=== PATIENT | female | born 1965 | race Caucasian/White ===

== ENCOUNTER 2019-09-14 13:48 | Outpatient (CLI) | payer OTHER, SELFPAY ==
--- NOTE | ~2019-09-14 | MM_ITS ---
EXAMINATION: MM screening francisca BI w nichole HISTORY: Screening mammogram TECHNIQUE: Craniocaudal and mediolateral oblique 3-D tomosynthesis images were obtained and synthetic 2-D images were generated. CAD analysis was submitted and interpreted. COMPARISON: 08/05/2018, 04/10/2017, 04/09/2016 bilateral digital screening mammogram examinations BREAST PARENCHYMAL COMPOSITION: The breasts are almost entirely fatty. FINDINGS: There is no evidence of suspicious mass, calcification, or architectural distortion to sugg est malignancy in either breast. There has been no suspicious interval change. IMPRESSION: 1. No mammographic evidence of malignancy. 2. Recommend routine screening mammography in one year. BI-RADS Category 1: Negative Reviewed, dictated and finalized at location A. DINGS AND GROUNDS DIRECTOR
== END 2019-09-14 13:49 | disposition home or self-care (01) ==
LOC: ANHIMG 13:52
PROVIDERS: PCP Family Medicine; Visit Provider Family Medicine
DX: Z12.31 Encounter for screening mammogram for malignant neoplasm of breast (principal)
CPT/HCPCS: 77063; 77067

== ENCOUNTER 2020-05-02 06:48 | Outpatient (NON) | payer OTHER, SELFPAY ==
[2020-05-02 23:56] LABS: SARS-CoV-2 RNA PCR Negative
== END 2020-05-02 06:49 ==
LOC: ANHCOVIDDT 06:51
PROVIDERS: PCP Family Medicine; Visit Provider Family Medicine
DX: Z20.828 Contact with and (suspected) exposure to other viral communicable diseases (principal)
CPT/HCPCS: 87635; C9803; U0003

== ENCOUNTER 2020-07-28 07:02 | Outpatient (NON) | payer OTHER, SELFPAY ==
[2020-07-28 21:49] LABS: SARS-CoV-2 RNA PCR Negative
== END 2020-07-28 07:03 ==
LOC: ANHCOVIDDT 07:02
PROVIDERS: PCP Family Medicine; Visit Provider Family Medicine
DX: Z20.822 Contact with and (suspected) exposure to COVID-19 (principal); R68.89 Other general symptoms and signs
CPT/HCPCS: C9803; U0003; U0005

== ENCOUNTER 2020-07-31 06:54 | Outpatient (NON) | payer OTHER, SELFPAY ==
[2020-07-31 22:35] LABS: SARS-CoV-2 RNA PCR Negative
== END 2020-07-31 06:55 ==
LOC: ANHCOVIDDT 07:05
PROVIDERS: PCP Family Medicine; Visit Provider Physician Assistant
DX: R68.89 Other general symptoms and signs (principal); Z20.822 Contact with and (suspected) exposure to COVID-19
CPT/HCPCS: C9803; U0003; U0005

== ENCOUNTER 2020-10-23 14:48 | Outpatient (CLI) | payer OTHER, SELFPAY ==
--- NOTE | ~2020-10-23 | MM_ITS ---
EXAMINATION: MM screening francisca BI w nichole HISTORY: Screening TECHNIQUE: Craniocaudal and mediolateral oblique 3-D tomosynthesis images were obtained and synthetic 2-D images were generated. CAD analysis was submitted and interpreted. COMPARISON: Comparison to multiple prior studies sequentially, with oldest reviewed study dated 09/29. BREAST PARENCHYMAL COMPOSITION: There are scattered areas of fibroglandular density. FINDINGS: There is no evidence of suspicious mass, calcification, or architectural distortion to sugg est malignancy in either breast. There has been no suspicious interval change. IMPRESSION: 1. No mammographic evidence of malignancy. 2. Recommend routine screening mammography in one year. BI-RADS Category 1: Negative Reviewed, dictated and finalized at location A.
== END 2020-10-23 14:49 | disposition home or self-care (01) ==
PROVIDERS: PCP Family Medicine; Visit Provider Family Medicine
DX: Z12.31 Encounter for screening mammogram for malignant neoplasm of breast (principal)
CPT/HCPCS: 77063; 77067

== ENCOUNTER 2021-01-10 00:39 | Emergency (ER) | payer OTHER, SELFPAY ==
--- NOTE | ~2021-01-10 | CT_ITS ---
EXAMINATION: CT brain wo con DATE: 01/10/2021 01:11 INDICATION: Headache TECHNIQUE: Computed tomography (CT) of the head was performed without intravenous contrast. Sagittal and coronal reconstructions were performed. The mA was adjusted according to patient size. Iterative reconstruction technique was employed. The dose-length product was 605.33 mGy-cm. COMPARISON: None FINDINGS: No acute intracranial hemorrhage, acute infarction or abnormal extra axial fluid collection. Ventricl es are normal and symmetric. No mass/mass effect. The orbits, paranasal sinuses and mastoid air cells are normal. IMPRESSION: 1. Normal head CT. Reviewed, dictated and finalized at location A. IMPRESSION: 1. Normal head CT.
[2021-01-10 00:46] VITALS: BP 137/82; PULSE 90; RESP 14; TEMP 36.9; O2SAT 99
--- NOTE | 2021-01-10 01:15 | ED.GENADULT ---
HPI - General Adult General Chief complaint: Unspecified Stated complaint: heat exhaustion Time Seen by Provider: 01/10/21 01:01 Source: patient Mode of arrival: ambulatory Limitations: no limitations History of Present Illness HPI narrative: Patient is a 55-year-old female complaining of I think I have heat exhaustion described as headache, nausea and cramps of bilateral lower extremities that started tonight. Patient states that her headache is an 8 out of 10, generalized, history of migraines, states that this is her typical headache. Patient states that she has been working outside in the heat the today, mowed her yard, cut grass. Patient denies any speech or visual disturbance, focal weakness or numbness, chest pain, shortness of breath, abdominal pain, vomiting, diarrhea, fever or chills. Related Data Allergies Allergy/AdvReac Type Severity Reaction Status Date / Time Sulfa (Sulfonamide Allergy Unknown Unknown Verified 10/23/20 13:39 Antibiotics) Review of Systems Review of Systems: All systems reviewed & are unremarkable except as noted in HPI and below Constitutional: Constitutional: Denies body ache(s), Denies chills, Denies excessive sweating, Denies fatigue, Denies fever(s), Denies headache(s), Denies lethargy, Denies malaise, Denies weakness and Denies weight loss Eyes: Eyes: Denies blurry vision, Denies change in vision and Denies loss of vision ENT: Denies dizziness, Denies ear discharge, Denies headache(s), Denies lip swelling, Denies epistaxis, Denies nasal congestion, Denies neck pain, Denies throat swelling and Denies tongue swelling Cardiovascular: Cardiovascular: Denies chest pain, Denies chest pain at rest, Denies chest pain with activity, Denies diaphoresis, Denies rapid heart rate, Denies edema, Denies irregular heart rhythm, Denies lightheadedness, Denies palpitations, Denies dyspnea and Denies dyspnea on exertion Respiratory: Respiratory: Denies chest congestion, Denies cough, Denies hemoptysis, Denies dyspnea and Denies dyspnea on exertion Gastrointestinal: Gastrointestinal: Denies abdominal pain, Denies melena, Denies hematochezia, Denies diarrhea, Denies vomiting and Denies hematemesis Musculoskeletal: Musculoskeletal: Denies abnormal gait, Denies deformity, Denies joint swelling, Denies limited range of motion, Denies neck pain and Denies numbness Neurologic: Denies Abnormal speech present, Denies abnormal gait, Denies confusion, Denies dizziness, Denies focal weakness, Denies loss of vision, Denies numbness, Denies Other visual disturbances, Denies Sensory deficit (Neuro) and Denies weakness Psychiatric: Psychiatric: Denies confusion, Denies depression, Denies auditory hallucinations, Denies homicidal ideation and Denies suicidal ideation Endocrine: Endocrine: Denies cold intolerance, Denies excessive sweating, Denies fatigue, Denies heat intolerance and Denies palpitations Hematologic/Lymphatic: Hematologic/Lymphatic: Denies easy bleeding and Denies easy bruising Allergic/Immunologic: Allergic/Immunologic: Denies lip swelling, Denies throat swelling and Denies tongue swelling PMFSH Past Medical History Medical History JOHN (generalized anxiety disorder) Family History Family History Father Hypertension Family history of elevated blood lipids Cerebrovascular accident Family history of diabetes mellitus in first degree relative, Onset Age: 82 Patient's father is Sibling Cerebrovascular accident, Onset Age: 45 Mother Family history of malignant neoplasm of breast in first degree relative, Onset Age: 42 Patient's mother is Social History Social History Social History: Smoking status: Never smoker Second hand tobacco smoke exposure: No Alcohol intake: never Subs
[2021-01-10] MEDS: SODIUM CHLORIDE 0.9% IV 1,000 ML 999 ML IV CONT ×2 (01:32→01:33)
[2021-01-10] MEDS: METOCLOPRAMIDE HCL INJ 10 MG/2 ML VIAL IV PUSH (01:33)
[2021-01-10] MEDS: diphenhydrAMINE HCl INJ 50 MG/ML VIAL 25 MG IV PUSH (01:34)
[2021-01-10 01:47] LABS: Basophils Absolute Auto 0.1 K/mm3 (0.0-0.1); Eosinophils Absolute Auto 0.1 K/mm3 (0-0.3); Eosinophils Percent Auto 1.2 % (0-4.4); Hematocrit 39.3 % (37.0-47.0); Hemoglobin 12.8 g/dL (12.0-15.0); Immature Granulocyte Absolute 0.04 K/mm3 (0.00-0.031); Immature Granulocyte Percent A 0.4 % (0-0.5); Lymphocytes Percent Auto 27.2 % (18.3-44.2); Mean Corpuscular HGB Conc 32.6 g/dl (32-36); Mean Corpuscular Hemoglobin 29.4 pg (26-34); Mean Corpuscular Volume 90.3 fl (80-100); Mean Platelet Volume 9.6 fl (7.4-10.4); Monocytes Absolute Auto 0.7 K/mm3 (0.1-0.6); Monocytes Percent Auto 7.4 % (2.6-8.5); Neutrophils Absolute Auto 6.2 K/mm3 (1.3-6.7); Neutrophils Percent Auto 62.8 % (45.5-73.1); Platelet Count Result 288 k/mm3 (150-375); Red Blood Count 4.35 M/mm3 (4.2-5.4); Red Cell Distribution Width 12.9 % (11.5-14.5); White Blood Count 9.9 K/mm3 (4.5-10.0)
[2021-01-10 01:56] LABS: Alanine Aminotransferase 28 U/L (4-35); Albumin Level 4.2 g/dL (3.5-5.1); Alkaline Phosphatase 61 U/L (38-126); Anion Gap 9 mmol/L (8-16); Aspartate Amino Transferase 27 U/L (14-36); Bilirubin,Total 0.5 mg/dL (0.2-1.3); Blood Urea Nitrogen 13 mg/dL (7-17); Calcium 9.4 mg/dL (8.4-10.2); Carbon Dioxide 25 mmol/L (22-30); Chloride 106 mmol/L (98-107); Creatine Kinase 75 U/L (30-135); Estimated CRCL calculation 58 ml/min; Estimated Glomerular Filt Rate 58; Glucose 82 mg/dL (65-105); Potassium 3.8 mmol/L (3.4-5.0); Sodium 140 mmol/L (137-145)
[2021-01-10 02:50] VITALS: BP 117/68; PULSE 68; RESP 16; O2SAT 100
== END 2021-01-10 03:20 | disposition home or self-care (01) ==
PROVIDERS: Emergency Provider Emergency Medicine; PCP Family Medicine
DX: T67.5XXA Heat exhaustion, unspecified, initial encounter (principal); G43.909 Migraine, unspecified, not intractable, without status migrainosus
CPT/HCPCS: 36415; 70450; 80053; 82550; 85025; 96361; 96374; 96375; 99284; J1200; J2765; J7030

== ENCOUNTER 2021-05-27 14:18 | Emergency (ER) | payer OTHER, SELFPAY ==
--- NOTE | ~2021-05-27 | XR_ITS ---
EXAMINATION: XR foot RT min 3V DATE: 05/27/2021 14:58 INDICATION: Right fifth metatarsal pain. Injury. TECHNIQUE: 4 views of right foot were obtained. COMPARISON: None. FINDINGS: There is moderate hallux valgus. No fracture. There is mild osteoarthritis of first metatar sophalangeal joint. There are enthesophytes at the posterior and plantar aspects of calcaneal tuberos ity. IMPRESSION: 1. Moderate hallux valgus. 2. Mild osteoarthritis of first metatarsophalangeal joint. Reviewed, dictated and finalized at location A. NHOUSE ASSISTANT
[2021-05-27 14:40] VITALS: BP 136/66; PULSE 74; RESP 18; TEMP 37; O2SAT 100
--- NOTE | 2021-05-27 14:44 | ED.LOWEXIN ---
HPI - Extremity Injury (Lower) General Chief Complaint: Extremity Injury, Lower Stated Complaint: Rt foot/ankle pain Time Seen by Provider: 05/27/21 14:44 Source: patient, RN notes reviewed and old records reviewed Mode of arrival: ambulatory Limitations: no limitations History of Present Illness HPI Narrative: 56-year-old female presents to the [facility] with complaints of right foot pain, fifth metatarsal into the plantar aspect since yesterday at 4 PM when she stepped in a hole. Has taken naproxen. History of anxiety, gallbladder removal, meniscus removal. Related Data Allergies Allergy/AdvReac Type Severity Reaction Status Date / Time Sulfa (Sulfonamide Allergy Mild Hives Verified 05/27/21 14:43 Antibiotics) Review of Systems Review of Systems: All systems reviewed & are unremarkable except as noted in HPI and below Constitutional: Constitutional: Reports no additional constitutional complaints, Denies chills and Denies fever(s) Eyes: Eyes: Reports no additional eye complaints ENT: Reports system reviewed and no additional complaints, except as documented Cardiovascular: Cardiovascular: Reports no additional cardiovascular complaints Respiratory: Respiratory: Reports no additional respiratory complaints Musculoskeletal: Musculoskeletal: Reports as per HPI Comments: Right fifth metatarsal tenderness, swelling Integumentary/Breasts: Skin/Breast: Reports system reviewed and no additional complaints, except as docu Neurologic: Reports system reviewed and no additional complaints, except as documented Psychiatric: Psychiatric: Reports no additional psychiatric complaints Allergic/Immunologic: Allergic/Immunologic: Reports no additional allergic/immunologic complaints [facility] Past Medical History Medical History JOHN (generalized anxiety disorder) Migraines Surgical History Surgical History History of meniscectomy of left knee History of tubal ligation Family History Family History Father Hypertension Family history of elevated blood lipids Cerebrovascular accident Family history of diabetes mellitus in first degree relative, Onset Age: 82 Patient's father is Sibling Cerebrovascular accident, Onset Age: 45 Mother Family history of malignant neoplasm of breast in first degree relative, Onset Age: 42 Patient's mother is Social History Social History Social History: Smoking status: Never smoker Second hand tobacco smoke exposure: No Alcohol intake: never Substance use: never Substance use type: does not use Gender identity (if verbalized by the patient): Female Sexual Orientation (if Verbalized by the Patient): Straight or Heterosexual Comments At the time of my signature, I reviewed and agree with the nursing past medical, surgical, social, and family history. There is no relevant family history pertinent to the patient complaint. Exam Const: General: healthy appearing, no acute distress and alert Nutritional Appearance: well nourished Orientation/consciousness: patient oriented x3 Limitations: no limitations HENMT: Head: normal to inspection Eyes: Pupils: Equal, round and reactive pupils present Neck: Neck: normal visual inspection, no lymphadenopathy and no meningeal signs Chest: Chest palpation & inspection: normal inspection of the chest Resp: Effort & Inspection: normal respiratory effort Cardio: Rate: regular rate Back/Spine/Pelvis: Back: no CVA tenderness Skin: General skin exam: normal color Rashes: no rashes Wounds: no wounds Neuro: General: patient oriented x3, moves all extremities, no meningeal signs and no focal motor deficits Speech: normal speech Gait exam (Neuro): Normal gait present Extrem: Ge
== END 2021-05-27 15:15 | disposition home or self-care (01) ==
PROVIDERS: Emergency Provider Nurse Practitioner; PCP Family Medicine
DX: S93.601A Unspecified sprain of right foot, initial encounter (principal); W17.2XXA Fall into hole, initial encounter
CPT/HCPCS: 73630; 99213; G0463

== ENCOUNTER 2021-06-19 09:32 | Outpatient (CLI) | payer OTHER, SELFPAY ==
--- NOTE | ~2021-06-19 | XR_ITS ---
EXAMINATION: XR foot RT min 3V DATE: 06/19/2021 09:59 INDICATION: Right foot pain TECHNIQUE: Dorsoplantar, lateral, and 2 oblique views of the right foot were obtained. COMPARISON: 05/27/2021 FINDINGS: There is no fracture, dislocation, or subluxation. Moderate hallux valgus is again noted. T here is mild osteoarthritis of multiple interphalangeal joints and at the first metatarsophalangeal j oint. Posterior and plantar calcaneal enthesophytes are noted. The soft tissues are unremarkable. IMPRESSION: 1. No acute osseous abnormality. Reviewed, dictated and finalized at location A. LLIGENCE SENIOR SERGEANT
== END 2021-06-19 09:33 | disposition home or self-care (01) ==
LOC: ANHIMG 09:36
PROVIDERS: PCP Family Medicine; Visit Provider Family Medicine
DX: M79.671 Pain in right foot (principal)
CPT/HCPCS: 73630

== ENCOUNTER 2021-07-01 12:52 | Emergency (ER) | payer OTHER, SELFPAY ==
[2021-07-01 13:05] VITALS: BP 127/75; PULSE 99; RESP 18; TEMP 38; O2SAT 97
--- NOTE | 2021-07-01 13:05 | ED.URI ---
HPI - URI/Sore Throat General Chief Complaint: Abdominal Pain Stated Complaint: flu like symptoms,diarrhea Time Seen by Provider: 07/01/21 13:05 Source: patient, RN notes reviewed and old records reviewed Mode of arrival: ambulatory Limitations: no limitations History of Present Illness HPI Narrative: 56-year-old female presents to the [facility] with complaints of diarrhea and low-grade fevers that started yesterday. Also has lower back pain. Denies any urinary symptoms. No frequency urgency or burning. No abdominal pain. No chest pain. Denies any other symptoms Related Data Home Medications Medication Instructions Recorded Confirmed aspirin [Adult Aspirin EC Low 81 mg PO DAILY 07/01/21 07/01/21 Strength] Allergies Allergy/AdvReac Type Severity Reaction Status Date / Time Sulfa (Sulfonamide Allergy Mild Hives Verified 07/01/21 13:19 Antibiotics) Review of Systems Review of Systems: All systems reviewed & are unremarkable except as noted in HPI and below Constitutional: Constitutional: Reports as per HPI, Reports chills and Reports fever(s) Eyes: Eyes: Reports no additional eye complaints ENT: Reports system reviewed and no additional complaints, except as documented, Denies dysphagia, Denies vertigo, Denies dizziness, Denies nasal congestion and Denies sore throat Cardiovascular: Cardiovascular: Reports no additional cardiovascular complaints and Denies chest pain Respiratory: Respiratory: Reports no additional respiratory complaints, Denies cough, Denies dyspnea and Denies wheezing Gastrointestinal: Gastrointestinal: Reports as per HPI, Denies abdominal pain, Reports diarrhea and Denies vomiting Genitourinary: Genitourinary: Reports no additional female genitourinary complaints, Denies nocturia, Denies dysuria, Denies flank pain and Denies urinary incontinence Musculoskeletal: Musculoskeletal: Reports as per HPI and Reports back pain (Lower) Integumentary/Breasts: Skin/Breast: Reports system reviewed and no additional complaints, except as docu Neurologic: Reports system reviewed and no additional complaints, except as documented Psychiatric: Psychiatric: Reports no additional psychiatric complaints Allergic/Immunologic: Allergic/Immunologic: Reports no additional allergic/immunologic complaints PMFSH Past Medical History Medical History JOHN (generalized anxiety disorder) Migraines Surgical History Surgical History History of meniscectomy of left knee History of tubal ligation Family History Family History Father Hypertension Family history of elevated blood lipids Cerebrovascular accident Family history of diabetes mellitus in first degree relative, Onset Age: 82 Patient's father is Sibling Cerebrovascular accident, Onset Age: 45 Mother Family history of malignant neoplasm of breast in first degree relative, Onset Age: 42 Patient's mother is Social History Social History Social History: Smoking status: Never smoker Second hand tobacco smoke exposure: No Alcohol intake: never Substance use: never Substance use type: does not use Gender identity (if verbalized by the patient): Female Sexual Orientation (if Verbalized by the Patient): Straight or Heterosexual Comments At the time of my signature, I reviewed and agree with the nursing past medical, surgical, social, and family history. There is no relevant family history pertinent to the patient complaint. Exam Const: General: healthy appearing, no acute distress and alert Nutritional Appearance: well nourished Orientation/consciousness: patient oriented x3 Limitations: no limitations HENMT: Head: normal to inspection Ears: external ears normal, TM's normal b
== END 2021-07-01 13:44 | disposition home or self-care (01) ==
PROVIDERS: Emergency Provider Nurse Practitioner; PCP Family Medicine
DX: K52.9 Noninfective gastroenteritis and colitis, unspecified (principal); N30.01 Acute cystitis with hematuria; Z79.82 Long term (current) use of aspirin
CPT/HCPCS: 81003; 87086; 87088; 87804; 99213; G0463

== ENCOUNTER → 2021-07-03 02:50 | Outpatient (CLI) | payer OTHER, SELFPAY ==
[2021-07-03 19:40] LABS: SARS-CoV-2 RNA PCR Negative
== END ==
PROVIDERS: PCP Family Medicine; Visit Provider Nurse Practitioner
DX: R50.9 Fever, unspecified (principal); Z20.822 Contact with and (suspected) exposure to COVID-19
CPT/HCPCS: C9803; U0003; U0005

== ENCOUNTER 2021-07-27 11:18 | Emergency (ER) | payer OTHER, SELFPAY ==
[2021-07-27 11:49] VITALS: BP 139/87; PULSE 90; RESP 18; TEMP 37.9; O2SAT 98
--- NOTE | 2021-07-27 12:32 | ED.URI ---
HPI - URI/Sore Throat General Chief Complaint: Upper Respiratory Infection Stated Complaint: Fever,Chest and Upper Back Pain,Cough Time Seen by Provider: 07/27/21 12:22 Source: patient and RN notes reviewed Mode of arrival: ambulatory Limitations: no limitations History of Present Illness HPI Narrative: Patient presents today complaining of 3-day history of chest and back heaviness, productive cough, and fever up to 101.4. She reports multiple sick contacts with COVID-19 at work. She has been taking Tylenol with some relief and using cough drops. She has been vaccinated against COVID-19. MD elicited complaint: fever and cough Related Data Home Medications Medication Instructions Recorded Confirmed aspirin [Adult Aspirin EC Low 81 mg PO DAILY 07/01/21 07/27/21 Strength] Allergies Allergy/AdvReac Type Severity Reaction Status Date / Time Sulfa (Sulfonamide Allergy Mild Hives Verified 07/01/21 13:19 Antibiotics) Review of Systems Review of Systems: CONSTITUTIONAL: Denies body aches, chills, or sweats.+ Fever EYES: Denies visual changes, redness, or discharge. ENT: Denies rhinorrhea, congestion, sore throat, or otalgia. CARDIOVASCULAR: Denies chest pain, palpitations, or edema. RESPIRATORY: Denies dyspnea.+ Cough, chest heaviness GASTROINTESTINAL: Denies abdominal pain, nausea, vomiting, or diarrhea. GENITOURINARY: Denies dysuria or hematuria. SKIN: Denies rash, itching, or wounds. MUSCULOSKELETAL: Denies back pain, joint pain, or myalgia. NEUROLOGIC: Denies headache, numbness, tingling, or weakness. PSYCH: Denies depression or anxiety. [facility] Past Medical History Medical History JOHN (generalized anxiety disorder) Migraines Surgical History Surgical History History of meniscectomy of left knee History of tubal ligation Family History Family History Father Hypertension Family history of elevated blood lipids Cerebrovascular accident Family history of diabetes mellitus in first degree relative, Onset Age: 82 Patient's father is Sibling Cerebrovascular accident, Onset Age: 45 Mother Family history of malignant neoplasm of breast in first degree relative, Onset Age: 42 Patient's mother is Social History Social History Social History: Smoking status: Never smoker Second hand tobacco smoke exposure: No Alcohol intake: never Substance use: never Substance use type: does not use Gender identity (if verbalized by the patient): Female Sexual Orientation (if Verbalized by the Patient): Straight or Heterosexual Comments At time of signature, I have reviewed and agree with nursing past medical, surgical, social and family history unless otherwise noted. Please see nursing chart for further information. There is no relevant family history pertinent to the presenting complaint Exam Narrative: GENERAL: Well-appearing, well-nourished, and in no acute distress. HEAD: Normocephalic, atraumatic. EYES: EOMI. No redness or drainage. Conjunctivae normal. ENT: Mucous membranes pink and moist. Nares clear. No rhinorrhea. TMs normal bilaterally. Throat normal. Uvula midline. NECK: Normal AROM. Supple. No lymphadenopathy. CHEST: No respiratory distress. Clear to auscultation. HEART: Regular rate and rhythm. No murmur appreciated. Normal peripheral pulses. EXTREMITIES: Normal range of motion. No edema. SKIN: Warm, dry, no rash. Capillary refill normal. Normal skin turgor. NEURO: No focal deficits. Alert and oriented x3. Gait steady. PSYCH: Normal affect. No signs of depression or anxiety. Course Course Level of Care: Express Care Visit Vital Signs Vital signs: Vital Signs Temperature
== END 2021-07-27 12:59 | disposition home or self-care (01) ==
PROVIDERS: Emergency Provider Nurse Practitioner; PCP Family Medicine
DX: U07.1 COVID-19 (principal); F41.9 Anxiety disorder, unspecified
CPT/HCPCS: 87426; 99213; C9803; G0463

== ENCOUNTER 2021-11-11 14:19 | Outpatient (CLI) | payer OTHER, SELFPAY ==
--- NOTE | ~2021-11-11 | MM_ITS ---
EXAMINATION: MM screening francisca BI w nichole HISTORY: Screening mammogram TECHNIQUE: Craniocaudal and mediolateral oblique 3-D tomosynthesis images were obtained and synthetic 2-D images were generated. CAD analysis was submitted and interpreted. COMPARISON: 10/23/2020, 09/2019, 08/01/2018 bilateral screening mammogram examinations BREAST PARENCHYMAL COMPOSITION: The breasts are almost entirely fatty. FINDINGS: There is no evidence of suspicious mass, calcification, or architectural distortion to sugg est malignancy in either breast. There has been no suspicious interval change. IMPRESSION: 1. No mammographic evidence of malignancy. 2. Recommend routine screening mammography in one year. BI-RADS Category 1: Negative Reviewed, dictated and finalized at location A.
== END 2021-11-11 14:20 | disposition home or self-care (01) ==
LOC: ANHIMG 14:20
PROVIDERS: PCP Family Medicine; Visit Provider Family Medicine
DX: Z12.31 Encounter for screening mammogram for malignant neoplasm of breast (principal)
CPT/HCPCS: 77063; 77067

== ENCOUNTER 2022-08-17 08:01 | Emergency (ER) | payer OTHER, SELFPAY ==
--- NOTE | 2022-08-17 08:14 | ED.GENADULT ---
HPI - General Adult General Chief complaint: Upper Respiratory Infection Stated complaint: flu like symptoms Time Seen by Provider: 08/17/22 08:16 Source: patient Mode of arrival: ambulatory Limitations: no limitations History of Present Illness HPI narrative: 57-year-old female patient presents to the [facility] with complaints of low-grade fever, congestion and just feeling tired for the past 2 days. Patient states she recently just got home from a cruise. Denies coughing, chest pain or shortness of breath. Denies any sneezing. Denies any of runny nose, ear pain or throat pain. Denies any abdominal pain, nausea, vomiting or diarrhea. Related Data Allergies Allergy/AdvReac Type Severity Reaction Status Date / Time Sulfa (Sulfonamide Allergy Mild Hives Verified 08/17/22 08:18 Antibiotics) Review of Systems Review of Systems: CONSTITUTIONAL: Positive fever, denies chills, or sweats. positive malaise EYES: Denies visual changes, redness, or discharge. ENT: Denies rhinorrhea, positive congestion, denies sore throat, or otalgia. CARDIOVASCULAR: Denies chest pain, palpitations, or edema. RESPIRATORY: Denies cough or dyspnea. GASTROINTESTINAL: Denies abdominal pain, nausea, vomiting, or diarrhea. GENITOURINARY: Denies dysuria or hematuria. SKIN: Denies rash or itching. MUSCULOSKELETAL: Denies back pain, joint pain, or myalgia. NEUROLOGIC: Denies headache, numbness, or weakness. PSYCHIATRIC: Denies anxiety or depression. [facility] Past Medical History Medical History JOHN (generalized anxiety disorder) Migraines Surgical History Surgical History History of meniscectomy of left knee History of tubal ligation Family History Family History Father Hypertension Family history of elevated blood lipids Cerebrovascular accident Family history of diabetes mellitus in first degree relative, Onset Age: 82 Patient's father is Sibling Cerebrovascular accident, Onset Age: 45 Mother Family history of malignant neoplasm of breast in first degree relative, Onset Age: 42 Patient's mother is Social History Social History (Reviewed 08/17/22 @ 08:30 by PAKO Strauss Social History: Smoking status: Never smoker Second hand tobacco smoke exposure: No Alcohol intake: never Substance use: never Substance use type: does not use Living arrangements: with family Occupation/Education: occupation Gender identity (if verbalized by the patient): Female Sexual Orientation (if Verbalized by the Patient): Straight or Heterosexual Comments At the time of my signature I agree with nursing past medical history, surgical, social, and family history. There is no relevant family history pertinent to the presenting complaint. Exam Narrative: GENERAL: Well-appearing, well-nourished, and in no acute distress. HEAD: Normocephalic, atraumatic. EYES: PERRLA and EOMI. ENT: Nares with erythema and edema noted bilaterally, no rhinorrhea or epistaxis. Mucous membranes moist. posterior pharynx with no erythema, tonsillar enlargement, exudates or lesions present. Bilateral TMs are clear no erythema or foreign bodies the canal. NECK: Supple. No lymphadenopathy CHEST: Clear to auscultation. No respiratory distress. HEART: Regular rate and rhythm. No murmur heard. Normal peripheral pulses. ABDOMEN: Soft, nontender, nondistended, normal active bowel sounds. EXTREMITIES: Normal range of motion. No edema. SKIN: Warm, dry, no rash. NEURO: No focal deficits. Alert and oriented x3. Course Course Level of Care: Express Care Visit Vital Signs Vital signs: Vital Signs Temperature 36.8 C 08/17/22 08:18 Pulse Rate 70 08/17/22 08:18 Respiratory Rate 18 08/17/22 08:18 Blood Pressure 126/73 08/17/22 08:18
[2022-08-17 08:18] VITALS: BP 126/73; PULSE 70; RESP 18; TEMP 36.8; O2SAT 96
[2022-08-17 08:19] VITALS: BP 126/73; PULSE 70; RESP 18; TEMP 36.8; O2SAT 96
== END 2022-08-17 08:57 | disposition home or self-care (01) ==
PROVIDERS: Emergency Provider Nurse Practitioner Family; PCP Family Medicine
DX: B34.9 Viral infection, unspecified (principal); Z20.822 Contact with and (suspected) exposure to COVID-19; F41.1 Generalized anxiety disorder
CPT/HCPCS: 87426; 87804; 99213; C9803; G0463

== ENCOUNTER 2022-11-29 08:48 | Outpatient (CLI) | payer OTHER, SELFPAY ==
[2022-11-29 09:32] LABS: Basophils Absolute Auto 0.1 K/mm3 (0.0-0.1); Basophils Percent Auto 0.8 % (0.2-1.2); Eosinophils Absolute Auto 0.1 K/mm3 (0-0.3); Eosinophils Percent Auto 2.3 % (0-4.4); Hematocrit 39.3 % (37.0-47.0); Hemoglobin 12.8 g/dL (12.0-15.0); Immature Granulocyte Absolute 0.02 K/mm3 (0.00-0.031); Immature Granulocyte Percent A 0.3 % (0-0.5); Lymphocytes Absolute Auto 1.59 K/mm3 (0.9-3.2); Lymphocytes Percent Auto 26.2 % (18.3-44.2); Mean Corpuscular HGB Conc 32.6 g/dl (32-36); Mean Corpuscular Hemoglobin 29.7 pg (26-34); Mean Corpuscular Volume 91.2 fl (80-100); Mean Platelet Volume 9.4 fl (7.4-10.4); Monocytes Absolute Auto 0.4 K/mm3 (0.1-0.6); Monocytes Percent Auto 6.6 % (2.6-8.5); Neutrophils Absolute Auto 3.9 K/mm3 (1.3-6.7); Neutrophils Percent Auto 63.8 % (45.5-73.1); Platelet Count Result 273 k/mm3 (150-375); Red Blood Count 4.31 M/mm3 (4.2-5.4); Red Cell Distribution Width 12.9 % (11.5-14.5); White Blood Count 6.1 K/mm3 (4.5-10.0)
[2022-11-29 09:42] LABS: Alanine Aminotransferase 28 U/L (6-35); Albumin Level 4.1 g/dL (3.5-5.1); Alkaline Phosphatase 58 U/L (38-126); Anion Gap 4 mmol/L (8-16); Aspartate Amino Transferase 25 U/L (14-36); Bilirubin,Total 0.6 mg/dL (0.2-1.3); Blood Urea Nitrogen 16 mg/dL (7-17); Calcium 9.1 mg/dL (8.4-10.2); Carbon Dioxide 30 mmol/L (22-30); Chloride 107 mmol/L (98-107); Cholesterol 177 mg/dL (0-200); Estimated Glomerular Filt Rate 57; Glucose 94 mg/dL (65-110); HDL Direct 43 mg/dL; Potassium 4.3 mmol/L (3.4-5.0); Sodium 141 mmol/L (137-145); Triglycerides 135 mg/dL (<150)
[2022-11-29 09:53] LABS: LDL Cholesterol Direct 85 mg/dL
== END 2022-11-29 08:49 | disposition home or self-care (01) ==
LOC: ANHLAB 08:49
PROVIDERS: PCP Family Medicine; Visit Provider Nurse Practitioner Gerontology
DX: F41.1 Generalized anxiety disorder (principal); Z13.220 Encounter for screening for lipoid disorders; Z13.29 Encounter for screening for other suspected endocrine disorder
CPT/HCPCS: 36415; 80053; 80061; 85025

== ENCOUNTER 2023-02-17 00:46 | Day surgery (SDC) | payer OTHER, SELFPAY ==
[2023-01-22 15:36] VITALS: BMI 34.7
[2023-02-17 06:45] VITALS: BP 131/77; PULSE 68; RESP 18; TEMP 36.3; O2SAT 99; BMI 34.9
[2023-02-17] MEDS: LACTATED RINGERS 1,000 ML 150 ML IV CONT (07:03)
--- NOTE | 2023-02-17 07:32 | WPDANESEPPF ---
Anes - Initial Pre Proc Eval Procedure: Operation Date: 02/17/23 08:15 Proposed Procedures p Screening Colonoscopy - Pino Sorensen MD Date/Time: 02/17/23 07:32 Surgeon: Pino Sorensen MD Pre Op Diagnosis: neoplasm screening Patient Data Age: 58 Gender: F Height: 1.57 m Weight: 86.6 kg Last Vital Signs Temp 36.3 C L 02/17/23 06:45 Pulse 68 02/17/23 06:45 Resp 18 02/17/23 06:45 BP 131/77 02/17/23 06:45 Pulse Ox 99 02/17/23 06:45 O2 Del Method Room Air 02/17/23 06:45 Allergies Allergy/AdvReac Type Severity Reaction Status Date / Time nickel Allergy Intermediate Rash Verified 02/17/23 06:50 Sulfa (Sulfonamide Allergy Intermediate Hives Verified 02/17/23 06:50 Antibiotics) Home Medications Medication Instructions Recorded Confirmed Type cetirizine 10 mg tablet See Rx Instructions .Route 08/20/22 02/17/23 Rx .COMPLEX #90 tabs escitalopram oxalate 10 mg tablet 10 mg PO DAILY #90 tabs 12/25/22 02/17/23 Rx aspirin 81 mg capsule 81 mg PO DAILY 01/22/23 02/17/23 History calcium 1 tab-cap PO DAILY 01/22/23 02/17/23 History Patient hx anesthesia problems: none Family hx anesthesia problems: none Results Review: All pre-operative results and documents have been reviewed as part of the pre-operative evaluation. PMFSH Past Medical History Medical History JOHN (generalized anxiety disorder) Migraines Surgical History Surgical History History of meniscectomy of left knee History of tubal ligation Family History Family History Father Hypertension Family history of elevated blood lipids Cerebrovascular accident Family history of diabetes mellitus in first degree relative, Onset Age: 82 Patient's father is Sibling Cerebrovascular accident, Onset Age: 45 Mother Family history of malignant neoplasm of breast in first degree relative, Onset Age: 42 Patient's mother is Social History Social History Social History: Smoking status: Never smoker Second hand tobacco smoke exposure: No Alcohol intake: current Substance use: never Substance use type: does not use Living arrangements: with family Occupation/Education: occupation Gender identity (if verbalized by the patient): Female Sexual Orientation (if Verbalized by the Patient): Straight or Heterosexual Spiritual care concerns: No Anes - Eval Final PreProcedure Day of Procedure 02/17/23 07:32 Patient weight: obese Heart: regular rate and rhythm Lungs: clear to auscultation Airway: Mallampati scale class II Neurological: alert and oriented Last oral intake: >/= 8 hours ASA classification: II Emergent: no Anesthetic plan: proceed Anesthesia type and monitoring: general GIVS and standard monitoring Results Review: All pre-operative results and documents have been reviewed as part of the pre-operative evaluation. Informed Consent: The patient's anesthetic plan and its attendant risks and benefits were discussed with the patient/family/POA. Questions were solicited and answers provided to the satisfaction of the patient/family/POA.
--- NOTE | 2023-02-17 08:03 | PM.HPGS ---
History of Present Illness History of Present Illness Consent: Risks, benefits, and alternatives have been discussed and questions answered. Patient agrees to proceed with procedure. Chief complaint: neoplasm screening Narrative: Zara Marley is a 58 year old female with colon polyp 5 years ago Review of Systems Constitutional: Constitutional: Denies headache(s) and Denies weakness Eyes: Eyes: Denies blurry vision ENT: Reports Normal hearing present, Denies headache(s) and Denies neck pain Cardiovascular: Cardiovascular: Denies chest pain and Denies dyspnea Respiratory: Respiratory: Denies dyspnea Gastrointestinal: Gastrointestinal: Reports no additional gastrointestinal complaints Genitourinary: Genitourinary: Denies dysuria Musculoskeletal: Musculoskeletal: Denies neck pain Integumentary/Breasts: Skin/Breast: Denies dry skin Neurologic: Reports Normal hearing present, Denies headache(s) and Denies weakness Psychiatric: Psychiatric: Denies anxiety Endocrine: Endocrine: Denies change in body appearance Hematologic/Lymphatic: Hematologic/Lymphatic: Denies easy bleeding Allergic/Immunologic: Allergic/Immunologic: Denies urticaria PMFSH Past Medical History Medical History JOHN (generalized anxiety disorder) Migraines Surgical History Surgical History History of meniscectomy of left knee History of tubal ligation Family History Family History Father Hypertension Family history of elevated blood lipids Cerebrovascular accident Family history of diabetes mellitus in first degree relative, Onset Age: 82 Patient's father is Sibling Cerebrovascular accident, Onset Age: 45 Mother Family history of malignant neoplasm of breast in first degree relative, Onset Age: 42 Patient's mother is Social History Social History Social History: Smoking status: Never smoker Second hand tobacco smoke exposure: No Alcohol intake: current Substance use: never Substance use type: does not use Living arrangements: with family Occupation/Education: occupation Gender identity (if verbalized by the patient): Female Sexual Orientation (if Verbalized by the Patient): Straight or Heterosexual Spiritual care concerns: No Meds Home Medications and Allergies Home Medications Medication Instructions Recorded Confirmed Type cetirizine 10 mg tablet See Rx Instructions .Route 08/20/22 02/17/23 Rx .COMPLEX #90 tabs escitalopram oxalate 10 mg tablet 10 mg PO DAILY #90 tabs 12/25/22 02/17/23 Rx aspirin 81 mg capsule 81 mg PO DAILY 01/22/23 02/17/23 History calcium 1 tab-cap PO DAILY 01/22/23 02/17/23 History Allergies Allergy/AdvReac Type Severity Reaction Status Date / Time nickel Allergy Intermediate Rash Verified 02/17/23 06:50 Sulfa (Sulfonamide Allergy Intermediate Hives Verified 02/17/23 06:50 Antibiotics) Vital Signs Vital Signs - 24 hr 02/17/23 06:45 Temperature 97.4 F L Pulse Rate 68 Respiratory Rate 18 Blood Pressure 131/77 Pulse Oximetry 99 Oxygen Delivery Room Air Exam Const: General: comfortable and no acute distress HENMT: Face/Nose/Sinus: Normal nares present Eyes: General: appearance normal, both eyes and all related structures Neck: Neck: no JVD Resp: Auscultation: clear to auscultation bilaterally Cardio: Rate: regular rate Rhythm: regular rhythm GI: Inspection: non-distended GI Palp: Yes Soft to palpation Skin: General skin exam: normal color Neuro: General: gait normal Speech: normal speech Extrem: General: normal to inspection Psych: Mental Status: mental status grossly normal Assessment and Plan Assessment and plan (1) Colon cancer screenin
[2023-02-17 08:19] VITALS: BP 103/54; PULSE 61; RESP 15; O2SAT 97
[2023-02-17 08:29] VITALS: BP 102/65; PULSE 59; RESP 19; O2SAT 97
[2023-02-17 08:39] VITALS: BP 130/80; PULSE 60; RESP 22; O2SAT 100
== END 2023-02-17 08:47 | disposition home or self-care (01) ==
PROVIDERS: PCP Family Medicine; Visit Provider Internal Medicine Gastroenterology
PROC: 0DJD8ZZ Inspection of Lower Intestinal Tract, Via Natural or Artificial Opening Endoscopic (ICD-10-PCS; CPT 45378; principal; 2023-02-17 08:15)
DX: Z12.11 Encounter for screening for malignant neoplasm of colon (principal); K57.30 Diverticulosis of large intestine without perforation or abscess without bleeding; K64.8 Other hemorrhoids; Z86.010 Personal history of colon polyps; F41.1 Generalized anxiety disorder; Z79.82 Long term (current) use of aspirin; E66.9 Obesity, unspecified; Z68.34 Body mass index [BMI] 34.0-34.9, adult
CPT/HCPCS: 45378; J2704; J7120

== ENCOUNTER 2023-02-26 14:41 | Outpatient (CLI) | payer OTHER, SELFPAY ==
--- NOTE | ~2023-02-26 | MM_ITS ---
EXAMINATION: MM screening francisca BI w nichole HISTORY: Screening TECHNIQUE: Craniocaudal and mediolateral oblique 3-D tomosynthesis images were obtained and synthetic 2-D images were generated. CAD analysis was submitted and interpreted. COMPARISON: Comparison to multiple prior studies sequentially, with oldest reviewed study dated 04/09. BREAST PARENCHYMAL COMPOSITION: The breasts are almost entirely fatty. FINDINGS: There is no evidence of suspicious mass, calcification, or architectural distortion to sugg est malignancy in either breast. There has been no suspicious interval change. IMPRESSION: 1. No mammographic evidence of malignancy. 2. Recommend routine screening mammography in one year. BI-RADS Category 1: Negative Reviewed, dictated and finalized at location A.
== END 2023-02-26 14:42 | disposition home or self-care (01) ==
PROVIDERS: PCP Family Medicine; Visit Provider Family Medicine
DX: Z12.31 Encounter for screening mammogram for malignant neoplasm of breast (principal)
CPT/HCPCS: 77063; 77067

== ENCOUNTER 2023-09-14 17:30 | Emergency (ER) | payer OTHER, SELFPAY ==
[2023-09-14 17:38] VITALS: BP 121/75; PULSE 71; RESP 16; TEMP 37.3; O2SAT 100
--- NOTE | 2023-09-14 18:21 | ED.URI ---
HPI - URI/Sore Throat General Chief Complaint: Upper Respiratory Infection Stated Complaint: Sore Throat Time Seen by Provider: 09/14/23 18:00 Source: patient, RN notes reviewed and old records reviewed Mode of arrival: ambulatory Limitations: no limitations History of Present Illness HPI Narrative: 58 year old female who presents to [facility] with complaints of sore throat,painful swallowing which started on Thursday with post nasal drainage. Patient reports no cough, has been taking Tylenol for pain unsure if fevers. 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 Patient reports that her throat is very painful feels swollen no acute swallowing or any breathing difficulty, no trismus noted. MD elicited complaint: sore throat Onset (ago): day(s) (3) Pain scale (0-10): 5 Able to tolerate fluids by mouth: Yes Exacerbating factors: swallowing Treatments prior to arrival: acetaminophen Related Data Home Medications Medication Instructions Recorded Confirmed aspirin 81 mg capsule 81 mg PO DAILY 01/22/23 09/14/23 calcium 1 tab-cap PO DAILY 01/22/23 09/14/23 Allergies Allergy/AdvReac Type Severity Reaction Status Date / Time nickel AdvReac Mild Rash Verified 09/14/23 17:31 Sulfa (Sulfonamide AdvReac Mild Hives Verified 09/14/23 17:31 Antibiotics) Review of Systems Review of Systems: CONSTITUTIONAL: Report malaise,no chills,no sweats, no known fever EYES: Denies visual changes, redness, or discharge. ENT: Reports rhinorrhea, congestion, no sinus pain, no otalgia and positive for sore throat. CARDIOVASCULAR: Denies chest pain, palpitations, or edema. RESPIRATORY: Reports no cough.? Denies dyspnea. GASTROINTESTINAL: Denies abdominal pain,positive for nausea,no vomiting,no diarrhea SKIN: Denies rash or itching. MUSCULOSKELETAL: Denies myalgia. NEUROLOGIC: Denies headache. All systems reviewed & are unremarkable except as noted in HPI and below PMFSH Past Medical History Medical History (Updated 09/14/23 @ 18:52 by Lakisha Bennett NP) Acute maxillary sinusitis, unspecified Acute pain of left knee Acute pain of right shoulder Angioedema Cellulitis of nose Contusion of left hand, subsequent encounter COVID-19 07/27/2021 Diarrhea Elevated liver enzymes JOHN (generalized anxiety disorder) JOHN (generalized anxiety disorder) Ganglion, right knee Hives Hypersomnia IFG (impaired fasting glucose) Knee effusion, left Lateral subluxation of right patella, subsequent encounter Lumbar back sprain Migraines PND (post-nasal drip) Sprain of anterior cruciate ligament of left knee Sprain of anterior cruciate ligament of left knee, initial encounter TMJ capsulitis Surgical History Surgical History (Updated 09/14/23 @ 18:53 by Lakisha Bennett NP) History of cholecystectomy History of meniscectomy of left knee History of tubal ligation Family History Family History Father Hypertension Family history of elevated blood lipids Cerebrovascular accident Family history of diabetes mellitus in first degree relative, Onset Age: 82 Patient's father is Sibling Cerebrovascular accident, Onset Age: 45 Mother Family history of malignant neoplasm of breast in first degree relative, Onset Age: 42 Patient's mother is Social History Social History Social History: Smoking status: Never smoker Second hand tobacco smoke exposure: No Alcohol intake: current Alcohol use details: Occasionally Substance use: never Substance use type: does not use Do You Feel Safe in your Home?: Yes Lack of Transportation: No Lack of Food: Never True Current Housing: I Have Housing Concerned About Future Housing: No Difficulty
== END 2023-09-14 18:29 | disposition home or self-care (01) ==
PROVIDERS: Emergency Provider Registered Nurse; PCP Family Medicine
DX: J02.9 Acute pharyngitis, unspecified (principal); Z86.16 Personal history of COVID-19; Z79.82 Long term (current) use of aspirin
CPT/HCPCS: 87081; 87880; 99213; G0463

== ENCOUNTER 2024-05-02 13:58 | Outpatient (CLI) | payer OTHER, SELFPAY ==
--- NOTE | ~2024-05-02 | MM_ITS ---
EXAMINATION: MM screening francisca BI w nichole HISTORY: Screening TECHNIQUE: Craniocaudal and mediolateral oblique 3-D tomosynthesis images were obtained and synthetic 2-D images were generated. CAD analysis was submitted and interpreted. COMPARISON: Comparison to multiple prior studies sequentially, with oldest reviewed study dated 04/10. BREAST PARENCHYMAL COMPOSITION: Not dense: There are scattered areas of fibroglandular density. FINDINGS: There is no evidence of suspicious mass, calcification, or architectural distortion to sugg est malignancy in either breast. There has been no suspicious interval change. IMPRESSION: 1. No mammographic evidence of malignancy. 2. Recommend routine screening mammography in one year. BI-RADS Category 1: Negative Reviewed, dictated and finalized at location B.
== END 2024-05-02 13:59 | disposition home or self-care (01) ==
LOC: ANHIMG 14:00
PROVIDERS: PCP Family Medicine; Visit Provider Family Medicine
DX: Z12.31 Encounter for screening mammogram for malignant neoplasm of breast (principal)
CPT/HCPCS: 77063; 77067

== ENCOUNTER 2024-07-04 13:16 | Emergency (ER) | payer OTHER, SELFPAY ==
--- NOTE | 2024-07-04 13:31 | ED.URI ---
HPI - URI/Sore Throat General Chief Complaint: Upper Respiratory Infection Stated Complaint: Fever/congestion/cough Time Seen by Provider: 07/04/24 13:37 Source: patient Mode of arrival: ambulatory Limitations: no limitations History of Present Illness HPI Narrative: 59-year-old female presented for complaint of cough and feeling the chest back for about 5 days. Endorses shortness of breath with exertion. States low fever at onset has resolved. She endorses exposure to flu and RSV. She states ?and checking myself and because I am having my grandson be seen. ? She thinks her symptoms are manageable with [id number] medicine. Denies chest pain, palpitations, nausea, vomiting, diarrhea or fever. Related Data Home Medications ?Medication ?Instructions ?Recorded ?Confirmed ?Last Taken ?Type aspirin 81 mg capsule 81 mg PO DAILY 01/22/23 09/14/23 Unknown History calcium 1 tab-cap PO DAILY 01/22/23 09/14/23 Unknown History Allergies Allergy/AdvReac Type Severity Reaction Status Date / Time nickel AdvReac Mild Rash Verified 07/04/24 13:27 Sulfa (Sulfonamide AdvReac Mild Hives Verified 07/04/24 13:27 Antibiotics) Review of Systems Review of Systems: per HPI All systems reviewed & are unremarkable except as noted in HPI and below PMFSH Past Medical History Medical History JOHN (generalized anxiety disorder) TMJ capsulitis Sprain of anterior cruciate ligament of left knee Sprain of anterior cruciate ligament of left knee, initial encounter PND (post-nasal drip) Lumbar back sprain Lateral subluxation of right patella, subsequent encounter Knee effusion, left IFG (impaired fasting glucose) Hypersomnia Hives Ganglion, right knee Elevated liver enzymes Diarrhea Contusion of left hand, subsequent encounter Cellulitis of nose Angioedema Acute pain of right shoulder Acute pain of left knee Acute maxillary sinusitis, unspecified COVID-19 07/27/2021 Migraines JOHN (generalized anxiety disorder) Surgical History Surgical History History of cholecystectomy History of tubal ligation History of meniscectomy of left knee Family History Family History Father Hypertension Family history of elevated blood lipids Cerebrovascular accident Family history of diabetes mellitus in first degree relative, Onset Age: 82 Patient's father is Sibling Cerebrovascular accident, Onset Age: 45 Mother Family history of malignant neoplasm of breast in first degree relative, Onset Age: 42 Patient's mother is Social History Social History Social History: Smoking status: Never smoker Second hand tobacco smoke exposure: No Alcohol intake: current Alcohol use details: Occasionally Substance use: never Substance use type: does not use Do You Feel Safe in your Home?: Yes Lack of Transportation: No Lack of Food: Never True Current Housing: I Have Housing Concerned About Future Housing: No Difficulty Paying Gas/Electric Bills: No Difficulty Paying for Meds: No Currently Unemployed: No Education: Trade/Vocational Certificate Difficulty w/ Childcare or Family Care: No Living arrangements: with family Occupation/Education: occupation 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 Please see nursing chart for further information. There is no relevant family history pertinent to the presenting complaint Exam Narrative: GENERAL: Well-appearing, in no acute distress. EYES: EOMI. No redness or drainage. Conjunctivae normal. ENT: Mucous membranes pink and moist. No rhinorrhea. TMs normal bilaterally. Throat normal. Uvula midline. NECK: Normal AROM. Supple. CHEST: No respiratory distress. Lungs clear to all carranza. HEART: Regular rate and rhythm. No murmur appreciated. ABDOMEN: Soft, nontender, nondistended, normal active bowel sounds. SKIN: Warm, dry, no rash. Capillary refill normal. Normal skin turgor. NEURO: Alert and oriented x3. Gait steady. PSYCH: Normal affect. Course Course Emergency Course: Patient is aware of diagnosis, understands and agrees to treatment plan. Anticipatory guidance given. Patient agrees to follow-up as directed and is aware of reasons to seek care at the emergency department. Portions of this record may have been created with voice recognition software Level of Care: Express Care Visit Vital Signs Vital signs: Vital Signs Temperature 97.9 F 07/04/24 13:32 Pulse Rate 76 07/04/24 13:32 Respiratory Rate 16 07/04/24 13:32 Blood Pressure 128/74 07/04/24 13:32 Pulse Oximetry 100 07/04/24 13:32 Oxygen Delivery Room Air 07/04/24 13:32 Temperature 97.9 F 07/04/24 13:32 Pulse Rate 76 07/04/24 13:32 Respiratory Rate 16 07/04/24 13:32 Blood Pressure 128/74 07/04/24 13:32 Pulse Oximetry 100 07/04/24 13:32 Oxygen Delivery Room Air 07/04/24 13:32 MDM - URI/Sore Throat MDM Narrative Medical decision making narrative: Discussed physical exam findings, Rx steroid. Advised supportive measures and signs/symptoms to go to the ER. Pt is appropriate for outpt treatment and f/u with pcp if sx persist. Differential Diagnosis Differential diagnosis: Likely upper respiratory infection, viral infection, bronchitis and other Discharge Plan Discharge Clinical Impression: Bronchitis Patient Disposition: Home, Self-Care Condition: Stable Instructions: Antibiotic Form, Acute Bronchitis (ED) Additional Instructions: Acute bronchitis can be contagious because it is usually caused by infection with a virus or bacteria. It is usually for a few days but you can be contagious for up to one week. Avoid crowds until you do not have a fever and symptoms are improved Take medication as directed Recommend Flonase spray and Zyrtec (or Claritin/Mary) over the counter Cough syrup may cause drowsiness; avoid driving or take it at night time. Tylenol 1000mg every 8 hours as needed for pain Symptomatic treatment includes: rest, fluids, and increase humidity of the air at home. Follow up with your primary care provider as needed in 1 week Go to the ER for worsening symptoms or concerns Patient Language: Irish Prescriptions: New benzonatate 200 mg capsule 200 mg PO TID PRN (Reason: cough) Qty: 20 0RF methylprednisolone [Medrol (Boom)] 4 mg tablets,dose pack See Rx Instructions .ROUTE .COMPLEX Qty: 21 0RF Rx Instructions: orally per package directions No Action aspirin 81 mg Capsule 81 mg PO DAILY calcium 1 tab-cap PO DAILY ipratropium bromide 21 mcg (0.03 %) spray,non-aerosol 2 spray intranasal BID Qty: 30 0RF Rx Instructions: administer into each nostril escitalopram oxalate 10 mg tablet See Rx Instructions .ROUTE .COMPLEX Qty: 90 3RF Dose Instruction: TAKE 1 TABLET DAILY Rx Instructions: TAKE 1 TABLET DAILY cetirizine 10 mg tablet See Rx Instructions .ROUTE .COMPLEX Qty: 90 3RF Dose Instruction: TAKE 1 TABLET DAILY NEEDED FOR ALLERGY SYMPTOMS Rx Instructions: TAKE 1 TABLET DAILY NEEDED FOR ALLERGY SYMPTOMS Follow-up/Referrals: Mirta Verdin MD [Primary Care Provider] - Time of Disposition: 14:55
[2024-07-04 13:32] VITALS: BP 128/74; PULSE 76; RESP 16; TEMP 36.6; O2SAT 100
== END 2024-07-04 15:02 | disposition home or self-care (01) ==
PROVIDERS: Emergency Provider Nurse Practitioner Family; PCP Family Medicine
DX: J40 Bronchitis, not specified as acute or chronic (principal)
CPT/HCPCS: 99213; G0463

== ENCOUNTER 2024-08-08 14:14 | Outpatient (CLI) | payer OTHER, SELFPAY ==
--- OUTSIDE RECORDS SUMMARY | 2024-08-08 15:12 | XMS_ITS | Continuity of Care Document ---
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 of Veterans Affairs facilities [facility], not all VA non-surgical procedures are included; 2) All procedures from the Department of Defense facilities. Procedure Procedure Type Code Date Perfomer Comments Sourc e No data available for this section Ambulato ry Pharmacy TELE ASSESS & MGT SRV PROV QUAL NONPHYS HLTH CARE PRO TO EST PAT,PARENT,GUARD NOT ORIG REL ASSESS & MGT SRV PROV W/IN PREV 7 DAYS NOR LEAD ASSESS & MGT SRV/PX W/IN NXT 24 HR/SOON APT;5-10 MIN MED DIS 9 DoD SCREENING PAPANICOLAOU SMEAR; OBTAINING, PREPARING AND CONVEYANCE OF CERVICAL OR VAGINAL SMEAR TO LABORATORY 8 DoD PURE TONE AUDIOMETRY (THRESHOLD), AUTOMATED; AIR ONLY 0 DoD TELE ASSESS & MGT SRV PROV QUAL NONPHYS HLTH CARE PRO TO EST PAT,PARENT,GUARD NOT ORIG REL ASSESS & MGT SRV PROV W/IN PREV 7 DAYS NOR LEAD ASSESS & MGT SRV/PX W/IN NXT 24 HR/SOON APT;5-10 MIN MED DIS 6 DoD PURE TONE AUDIOMETRY (THRESHOLD); AIR ONLY 6 DoD PURE TONE AUDIOMETRY (THRESHOLD), AUTOMATED; AIR ONLY 6 DoD SCREENING TEST, PURE TONE, AIR ONLY 3 DoD ENDOMETRIAL SAMPLING (BIOPSY) WITH OR WITHOUT ENDOCERVICAL SAMPLING (BIOPSY), WITHOUT CERVICAL DILATION, ANY METHOD (SEPARATE PROCEDURE) 3 [facility] INJECTION, DIAZEPAM, UP TO 5 MG 3 [facility] ELECTROCARDIOGRAM, ROUTINE ECG WITH AT LEAST 12 LEADS; INTERPRETATION AND REPORT ONLY 2 [facility] Non-Physician Phone Call To Patient/Provider Brief (5-10min) Non-Physician Phone Call To Patient/Provider Brief (5-10min) [phone] ANA ASNTILLAN [facility] Threshold Audiogram (Pure Tone) Threshold Audiogram (Pure Tone) 43363 6 QAMAR WASHINGTON [facility] Extensive Color Vision Testing Extensive Color Vision Testing [phone] 6 QAMAR [place] Screening Test Of Visual Acuity, Quantitative, Bilateral Screening Test Of Visual Acuity, Quantitative, Bilateral 42696 6 QAMAR [place] Threshold Audiogram (Pure Tone) Automated Threshold Audiogram (Pure Tone) Automated 0208T 6 ALBERT ARCHULETA [facility] Audiogram (Screening) Audiogram (Screening) 33265 3 HUY BRADFORD [facility] Visual Function Screening Visual Function Screening 02185 3 HUY BRADFORD [facility] Biopsy Endometrial Biopsy Endometrial 70637 3 SALLY HOLDER [facility] Non-Physician Phone Call To Patient/Provider Brief (5-10min) Non-Physician Phone Call To Patient/Provider Brief (5-10min) [phone] 9 NEYDA RAMIRES [facility] Non-Physician Phone Call To Pt/Provider Intermed (11-20 min) Non-Physician Phone Call To Pt/Provider Intermed (11-20 min) [phone] 9 ROSITA VILLEGAS [facility] Screening papanicolaou smear; obtaining, preparing and conveyance of cervical or vaginal smear to laboratory 8 NESHA CARNEY [facility] Threshold Audiogram (Pure Tone) Automated Threshold Audiogram (Pure Tone) Automated 0208T WILD HAYS [facility] Social History Combined list of available smoking, tobacco, and other social history from Department of Defense and Veterans Affairs facilities. Social History Type Response Date Comment Sourc e Sexual Orientation Ambula tory Pharmacy Gender identity Ambulator y Pharmacy Female Ambulatory Pha rmacy This section is an empty soc ial history section. DoD Assessment and Plan Combined list of future care activities from Department of Defense and Veterans Affairs facilities (e.g., assessment and plan notes, appointments, orders, and referrals). Additional future care activities may be listed in the Plan of Care section. Result Assessment and Plan Date Source Assessment and Plan Extracted from:Title : Imms Note Author: MARCELA MARQUEZ Date: 06/21/24 influenza virus vaccine, inactivated: 0.5 mL (06/21/24 11:57:00) Diagnosis: 1. Vaccination given Comment: Other status: influenza vaccine (Afluria) [3 yr+] PF [id number] IM suspension; 0.5 mL, IntraMuscular, Suspension-Injection, Vaccine, First Dose: 06/21/2024 11:57:00 CANVAS BASTER JUMPBASTING, 06/21/2024 11:57:00 CANVAS BASTER JUMPBASTING (Completed) by JESSICA SONG MD Office Visit Level 1 Est 11230; 06/21/2024 11:57:00 CANVAS BASTER JUMPBASTING (Completed) by JESSICA SONG MD Imadm Prq Id Subq/Im Njxs 1 Vaccine 25127; 06/21/2024 11:57:00 CANVAS BASTER JUMPBASTING (Completed) by JESSICA SONG MD End of Orders* Screening Questions referenced in DHA Form 116 (February 2024 edition) 1) Are you sick today? NO (2) Have you had a serious reaction following an influenza vaccine in the past? NO (3) Have you ever experienced numbness or weakness of your legs or elsewhere (Guillain-Hilton? syndrome) within 6 weeks of receiving an influenza vaccine? NO (4) Have you ever had, or been treated for, a severe allergic reaction (e.g., anaphylaxis) to any vaccine, or do you have a severe allergy to any of the following: Neomycin, Polymyxin-B, thimerosal, formaldehyde, latex, or other vaccine component? NO (5) Have you received an influenza vaccine within the past 30 days? NO (6) Are you a recipient of a solid organ transplant? NO (7) Have you ever passed out (vasovagal syncope) during or after a previous immunization or blood draw? NO (8) If your child is between 6 months and 8 years of age, has your child recived at least two (2) previous doses of influenza vaccine? NO Vaccine Information Statement provided: YES Vaccine administered on this visit: Afluria (IIV3) Seqirus 36mo (3 years) or OLDER (0.5mL)?More detailed information on the vaccine administered is charted under patient s vaccination history tab. 08/08/2024 Ambulatory Pharmacy Functional Status Combined list of recent functional and cognitive assessments recorded at Department of Defense and Veterans Affairs (VA).VA Functional [place] Measurement (FIM) Scale: 1 = Total Assistance (Subject = 0% +), 2 = Maximal Assistance (Subject = 25% +), 3 = Moderate Assistance (Subject = 50% +), 4 = Minimal Assistance (Subject = 75% +), 5 = Supervision, 6 = Modified [place] (Device), 7 = Complete [place] (Timely, Safely). Assessment Date/Time Source Assessment Type Assessment Skill Assessment Score Assessment Details No data available for this section
--- OUTSIDE RECORDS SUMMARY | 2024-08-08 15:12 | XMS_ITS | Clinical Summary ---
Author Organization [facility] Address [address] [place] [address]. [place] [address] [place] [address] Care Team Providers Care Proof Plate Maker Name Role Phone Mirta Verdin MD Primary Care Provider [phone] Allergies Active Allergy Reactions Criticality Noted Date Comments Sulfa Antibiotics Unknown 12/09/2017 Medications aspirin EC (ASPIRIN) 81 MG EC tablet Take 81 mg by mouth daily. Active escitalopram 5 MG tablet Take 5 mg by mouth daily. Active Active Problems No known active problems Family History Medical History Relation Comments Hypertension Father Cancer Mother Relation Status Comments Father Mother Social History Tobacco Use Types Packs/Day Years Used Date Smoking Tobacco: Never Smokeless Tobacco: Never Alcohol Use Standard Drinks/Week Comments No 0 (1 standard drink = 0.6 oz pur e alcohol) Comments No Sex and Gender Information Value Date Recorded Sex Assigned at Not on file Legal Sex Female 7:31 PM CDT Gender Identity Not on file Sexual Orientation Not on file Last Filed Vital Signs Vital Sign Reading Time Taken Comments Blood Pressure 121/89 12/09/2017 8:47 AM CDT Pulse 67 12/09/2017 8:47 AM CDT Temperature 36.7 ??C (98.1 ??F) 12/09/2017 7:47 AM CD T Respiratory Rate 18 12/09/2017 8:47 AM CDT Oxygen Saturation 98% 12/09/2017 8:47 AM CDT Inhaled Oxygen Concentration - - Weight 85.4 kg (188 lb 6 oz) 12/09/2017 7:47 AM CDT Height 157.5 cm (5' 2 ) 12/09/2017 7:47 AM CDT Body Mass Index 34.45 12/09/2017 7:47 AM CDT Plan of Treatment Health Maintenance Due Date Last Done Comments Cervical Cancer Screening Pa p Smear (Age 30 to 64) Every 3 Years 1966 Colorectal Cancer Screening Colonoscopy (10 Years) 1966 Annual Physical 1969 Hepatitis C 02/15/1984 DTaP, Tdap and Td Vaccines ( 1 - Tdap) 1985 Hepatitis B Vaccines (1 of 3 - 19+ 3-dose series) 1985 Cervical Cancer Screening Pa p with HPV Testing (Age 30 to 64) Every 5 Years 02/15/1996 Cervical Cancer Screening with HPV 02/15/1996 Mammogram Screening 2006 Zoster Vaccines (1 of 2) 02/15/2016 COVID-19 Vaccine ( - 2023-2 5 season) 2024 Influenza Adult (#1) 2024 Meningococcal B Vaccine Aged Out No l onger eligible based on patient's age to complete this topic Meningococcal Vaccine Aged Out No maria luz belgica eligible based on patient's age to complete this topic Pneumococcal Vaccine: Pediat rics (0 to 5 Years) and At-Risk Patients (6 to 64 Years) Aged Out No longer eligible b ased on patient's age to complete this topic RSV Immunizations Under 20 Months Aged Out No longer eligible based on patient's age to complete this topic Insurance Care Teams Proof Plate Maker Relationship Specialty Start Date End Date Mirta Verdin MD [address] [facility] [address] [place] [address] PCP - General 11/01/15
[2024-08-08 15:18] LABS: Influenza A QL RT-PCR Negative (Negative); Influenza B QL RT-PCR Negative (Negative); SARS-CoV-2 RNA PCR Positive (Negative)
== END 2024-08-08 14:15 | disposition home or self-care (01) ==
LOC: ANHLAB 14:20
PROVIDERS: PCP Family Medicine; Visit Provider Physician Assistant
DX: U07.1 COVID-19 (principal)
CPT/HCPCS: 87636

== ENCOUNTER 2025-02-15 08:41 | Outpatient (CLI) | payer OTHER, SELFPAY ==
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
[2025-02-15 09:22] LABS: Hematocrit 39.0 % (37.0-47.0); Hemoglobin 12.6 g/dL (12.0-15.0); Mean Corpuscular HGB Conc 32.3 g/dl (32-36); Mean Corpuscular Hemoglobin 29.7 pg (26-34); Mean Corpuscular Volume 92.0 fl (80-100); Platelet Count Result 259 k/mm3 (150-375); Red Blood Count 4.24 M/mm3 (4.2-5.4); White Blood Count 5.3 K/mm3 (4.5-10.0)
[2025-02-15 09:44] LABS: Alanine Aminotransferase 27 U/L (6-35); Albumin Level 4.0 g/dL (3.5-5.1); Alkaline Phosphatase 66 U/L (38-126); Anion Gap 4 mmol/L (4-12); Aspartate Amino Transferase 31 U/L (14-36); Bilirubin,Total 0.4 mg/dL (0.2-1.3); Blood Urea Nitrogen 9 mg/dL (7-17); Calcium 9.3 mg/dL (8.4-10.2); Carbon Dioxide 29 mmol/L (22-30); Chloride 107 mmol/L (98-107); Cholesterol 174 mg/dL (0-200); Estimated Glomerular Filt Rate > 60; Glucose 87 mg/dL (65-110); HDL Direct 47 mg/dL; Potassium 4.7 mmol/L (3.4-5.0); Sodium 140 mmol/L (137-145); Total Protein 7.1 g/dL (6.3-8.2); Triglycerides 126 mg/dL (<150)
[2025-02-15 10:20] LABS: Thyroid Stimulating Hormone 2.240 uIU/mL (0.465-4.680)
== END 2025-02-15 08:42 | disposition home or self-care (01) ==
LOC: ANHLAB 08:44
PROVIDERS: PCP Family Medicine; Visit Provider Physician Assistant Medical
DX: F41.1 Generalized anxiety disorder (principal); Z13.29 Encounter for screening for other suspected endocrine disorder; Z00.00 Encounter for general adult medical examination without abnormal findings
CPT/HCPCS: 36415; 80053; 80061; 84443; 85027

== ENCOUNTER 2025-03-14 15:00 | Outpatient (CLI) | payer OTHER, SELFPAY ==
--- NOTE | ~2025-03-14 | XR_ITS ---
EXAM/ PROCEDURE: XR shoulder LT min 2V - 03/14/2025 15:24 CDT HISTORY: 60 years old Female with M25.512 - Pain in left shoulder COMPARISON: None available TECHNIQUE: Three view(s) FINDINGS/ IMPRESSION: There are no fractures or dislocations.Joint space narrowing, subchondral sclerosis, subchondral cyst formation and osteophyte formation, compatible with mild osteoarthritis. Reviewed, dictated and finalized at location N.
--- OUTSIDE RECORDS SUMMARY | 2025-03-14 15:13 | XMS_ITS | Clinical Summary ---
Author Organization [facility] Address [address] [place] [address] Care Team Providers Care Oak Tanner Name Role Phone Mirta Verdin MD Primary Care Provider [phone] Allergies Active Allergy Reactions Criticality Noted Date [...] 67 12/09/2017 8:47 AM CDT Temperature 36.7 C (98.1 F) 12/09/2017 7:47 AM CDT Respiratory Rate 18 12/09/2017 8:47 AM CDT Oxygen Saturation 98% 12/09/2017 8:47 AM CDT Inhaled Oxygen Concentration - - Weight 85.4 kg (188 lb 6 oz) 12/09/2017 7:47 AM CDT Height 157.5 cm (5' 2) 12/09/2017 7:47 AM CDT Body Mass Index [...] Screening with HPV 02/15/1996 Mammogram Screening 2006 Pneumococcal Vaccine: 50+ Ye ars (1 of 1 - PCV) 02/15/2016 Zoster Vaccines (1 of 2) 02/15/2016 COVID-19 Vaccine (2023-2 5 season) 2024 Meningococcal B Vaccine Aged Out No l onger eligible based on patient's age to complete this topic Meningococcal Vaccine Aged Out No maria luz belgica eligible based on patient's age to complete this topic RSV Immunizations Under 20 Months Aged Out No longer eligible based on patient's age to complete this topic Insurance Care Teams Oak Tanner Relationship Specialty Start Date End Date Mirta Verdin MD [address] [facility] [address] [facility] [address] [place] [address] PCP - General 11/01/15
== END 2025-03-14 15:01 | disposition home or self-care (01) ==
PROVIDERS: PCP Family Medicine; Visit Provider Physician Assistant Medical
DX: M25.512 Pain in left shoulder (principal)
CPT/HCPCS: 73030

== ENCOUNTER 2025-05-15 10:42 | Outpatient (CLI) | payer OTHER, SELFPAY ==
--- NOTE | 2025-05-15 10:49 | ECG_ITS ---
Test Date: 2025-05-15 10:56:42 Measurements Intervals [place] Rate: 64 P: 17 [place]: 179 QRS: 12 QRSD: 87 T: 23 QT: 389 QTc: 403 Interpretive Statements SINUS RHYTHM POSSIBLE RIGHT VENTRICULAR CONDUCTION DELAY [RSR (QR) IN V1/V2] No previous ECG available for comparison Electronically Signed On 05-15-2025 11:24:58 CRM ANALYST by Jagdish Gunn M.D.
== END 2025-05-15 10:43 | disposition home or self-care (01) ==
LOC: ANHCARD 10:44
PROVIDERS: PCP Family Medicine; Visit Provider Orthopaedic Surgery
DX: R03.0 Elevated blood-pressure reading, without diagnosis of hypertension (principal)
CPT/HCPCS: 93005

== ENCOUNTER 2025-06-16 11:12 | Outpatient (CLI) | payer OTHER, SELFPAY ==
--- OUTSIDE RECORDS SUMMARY | 2025-06-16 11:25 | XMS_ITS | Clinical Summary ---
Author Organization [facility] Address [address] [place] [id number] Care Team Providers Care Ship Engineer Name Role Phone Mirta Verdin MD Primary Care Provider [phone]- [phone] Allergies Active Allergy Reactions Criticality Noted Date Comments Sulfa Antibiotics Unknown 12/09/2017 Medications aspirin EC (ASPIRIN) 81 MG EC tablet Take 81 mg by mouth daily. Active escitalopram 5 MG tablet Take 5 mg by mouth daily. Active Active Problems No known active problems Encounters Date Type Department Care Team Description 04/12/2025 1:31 PM CDT - 04/12/2025 11:59 PM CDT Hospital Encounter [facility] [address] [place] [address] Joe Escalera PA-C Discharge Disposition: Home or Self Care (Routine Discharge) 04/12/2025 Travel from Last 3 Months Family History Medical History Relation Comments Hypertension Father Cancer Mother Relation Status Comments Father Mother Social History Tobacco Use Types Packs/Day Years Used Date Smoking Tobacco: Never Smokeless Tobacco: Never Alcohol Use Standard Drinks/Week Comments No 0 (1 standard drink = 0.6 oz pur e alcohol) Comments No Sex and Gender Information Value Date Recorded Sex Assigned at Female 04/12/2025 1:30 PM CDT Legal Sex Female 7:31 PM CDT Gender [...] Date Last Done Comments Cervical Cancer Screening Pap Smear (Age 30 to 64) Every 3 Years 1966 Colorectal Cancer Screening Colonoscopy (10 Years) 1966 Annual Physical 1969 Hepatitis C 02/15/1984 Cervical Cancer Screening Pap with HPV Testing (Age 30 to 64) Every 5 Years 02/15/1996 Cervical Cancer Screening with HPV 02/15/1996 Mammogram Screening 2006 Pneumococcal Vaccine: 50+ Years (1 of 1 - PCV) 02/15/2016 Zoster Vaccines (2 of 2) 06/21/2020 04/26/2020 COVID-19 Vaccine (3 - season) 2025 09/07/2020, 08/14/2020 Influenza Adult (#1) 2025 06/21/2024, 05/21/2022, 04/04/2021, Additional history exists DTaP, Tdap and Td Vaccines (3 - Td or Tdap) 05/21/2032 05/21/2022, 04/08/2012, 03/18/2005, Additional history exists Hepatitis A Vaccines Aged Out 09/07/2000, 03/04/20 00 No longer eligible based on patient's age to complete this topic Meningococcal B Vaccine Aged Out No l onger eligible based on patient's age to complete this topic Meningococcal Vaccine Aged Out No maria luz belgica eligible based on patient's age to complete this topic RSV Immunizations Under 20 Months Aged Out No longer eligible based on patient's age to complete this topic Procedures Procedure Name Priority Date/Time Associated Diagnosis Comments MRI SHOULDER LT WO CON Routine 04/12/2025 2:50 PM CDT Pain in left shoulder from Last 3 Months Results * MRI SHOULDER LT WO CON (04/12/2025 2:50 PM CDT) Anatomical Region Laterality Modality Shoulder Magnetic Resonan ce 04/14/2025 10:1 6 AM CDT Impressions 04/14/2025 10:27 AM CDT IMPRESSION: Tiny oblique linear full-thickness tear nor myotendinous junction supraspinatus with some intrasubstance tearing or fluid tracking in the supraspinatus muscle from that tear. Small joint effusion and bursal fluid collections. Mild arthritis acromioclavicular joint with small inferior spurring. Ordered By: JOE ESCALERA Interpreted By: Parker Siegel MD, 04/14/2025 10:16 AM Narrative 04/14/2025 10:27 AM CDT [address] [address] 04/12/2025, 1443 hours. HISTORY: Left shoulder pain. Limited range of motion since July 2024. EXAM: MRI of the left shoulder without contrast. MR imaging was performed in the axial, the oblique sagittal and the oblique coronal planes utilizing T1, fat sat proton density and fat sat T2 sequence images. No comparison. FINDINGS: Linear oblique increased fat sat T2 signal at the myotendinous junction of the supraspinatus best seen on oblique coronal plane image suggesting a tiny perforation or tiny full-thickness tear in the supraspinatus. There is some tracking of fluid within the lateral supraspinatus muscle from that oblique apparent tear with some intramuscular fluid present. Glenohumeral joint effusion. Small subacromial and subdeltoid bursal fluid collections. The majority of the supraspinatus tendon appears intact. Minimal superior subluxation of the head of humerus on the glenoid the scapula slightly narrowing the subacromial space. Joint effusion and bursal fluid collections. The tendon of long head of the biceps is intact and normally positioned in the bicipital groove of the humerus. Mild arthritis acromioclavicular joint with minimal inferior spurring. No marrow replacement or gross bone destruction humeral head or neck nor glenoid of the scapula. No periarticular soft tissue mass. Procedure Note Parker Siegel MD - 04/14/2025 [facility] [address] [place] [address] 04/12/2025, 1443 hours. HISTORY: Left shoulder pain. Limited range of motion since July 2024. EXAM: MRI of the left shoulder without contrast. MR imaging was performed in the axial, the oblique sagittal and theoblique coronal planes utilizing T1, fat sat proton density and fat sat [id number] images. No comparison. FINDINGS: Linear oblique increased fat sat T2 signal at the myotendinousjunction of the supraspinatus best seen on oblique coronal plane imagesuggesting a tiny perforation or tiny full-thickness tear in thesupraspinatus. There is some tracking of fluid within the lateralsupraspinatus muscle from that oblique apparent tear with someintramuscular fluid present. Glenohumeral joint effusion. Smallsubacromial and subdeltoid bursal fluid collections. The majority of thesupraspinatus tendon appears intact. Minimal superior subluxation of thehead of humerus on the glenoid the scapula slightly narrowing thesubacromial space. Joint effusion and bursal fluid collections. The tendonof long head of the biceps is intact and normally positioned in thebicipital groove of the humerus. Mild arthritis acromioclavicular jointwith minimal inferior spurring. No marrow replacement or gross bonedestruction humeral head or neck nor glenoid of the scapula. Noperiarticular soft tissue mass. IMPRESSION: Tiny oblique linear full-thickness tear nor myotendinous junctionsupraspinatus with some intrasubstance tearing or fluid tracking in thesupraspinatus muscle from that tear. Small joint effusion and bursal fluidcollections. Mild arthritis acromioclavicular joint with small inferiorspurring. Ordered By: JOE ESCALERA Interpreted By: Parker Siegel MD, 04/14/2025 10:16 AM Joe Escalera PA-C MRI Final Re sult from Last 3 Months Insurance Care Teams Ship Engineer Relationship Specialty Start Date End Date Mirta Verdin MD [address] [facility] [address] [place] [address] PCP - General 11/01/15
[2025-06-16 11:52] LABS: Strep Group A RT-PCR NOT DETECTED (Negative)
[2025-06-16 12:04] LABS: Influenza A QL RT-PCR Negative (Negative); Influenza B QL RT-PCR Negative (Negative); RSV RNA, RT-PCR Negative (Negative); SARS-CoV-2 RNA PCR Negative (Negative)
== END 2025-06-16 11:13 | disposition home or self-care (01) ==
LOC: ANHLAB 11:13
PROVIDERS: PCP Family Medicine; Visit Provider Physician Assistant
DX: R50.9 Fever, unspecified (principal); J02.9 Acute pharyngitis, unspecified; Z20.822 Contact with and (suspected) exposure to COVID-19
CPT/HCPCS: 87637; 87651

== ENCOUNTER 2025-07-04 03:27 | Day surgery (SDC) | payer OTHER, SELFPAY ==
--- NOTE | 2025-06-29 17:01 | PC.NURSE ---
[facility] has started construction of its new state of the art ER which will open Spring 2026. With this, we anticipate parking may be a challenge for some our surgical patients and families. Parking spaces are limited but are available for all Surgical, obstetrics, and ER patients sharing this lot. If you arrive and find you are having a hard time finding a parking space, please note that we understand the challenges, please drive around the hospital and park near Hospital Entrance 1. When you enter this entrance, you can ask a volunteer to direct or take you back to the surgical waiting area to check in. We appreciate everyone?s understanding of these expected challenges while we build for your future. Report to the Outpatient Waiting Room, entrance under the green pavilion located off [address], at time 1100 on date 07/04/25. Planned Procedure Time: 1300.? Time changes happen often and if your time is changed the preop area will call you the afternoon before. - You and your visitor will be asked to self-screen and do not enter if you have any COVID symptoms. Please call surgeon if you need to reschedule. - A mask is optional within the hospital at this time. Patients may have clear liquids (water, carbonated beverages, clear teas, apple juice) until 3 hours prior to surgery with a maximum of 20 ounces. 1000 - No food from midnight until time of surgery and no smoking, or chewing tobacco (or any form of nicotine). No chewing gum, candy or mints. - Infants may have breast milk until 4 hours before surgery, infant formula 6 hours prior to surgery. - Children will be allowed to drink immediately following surgery.? If applicable, please bring a bottle or sippy cup to assist with drinking. Juice, water, soda, and popsicles are readily available.? For infants on formula, please bring formula the day of surgery.? Pacifiers are allowed. Take only the following medications with a SIP of water on the morning of surgery: LEXAPRO DO NOT STOP ANY OF YOUR OTHER PRESCRIPTION MEDICATIONS PRIOR TO SURGERY EXCEPT THE FOLLOWING Hold all vitamins and supplements for 3 days per anesthesiologist. Medications to discontinue per physician VITAMINS AND SUPPLEMENTS Date to take last dose 07/01/25 Please no make-up, nail czech, hairspray, perfume, deodorant, or body powder the day of surgery.? No jewelry (including any body piercings) or valuables the day of surgery, leave them at home.? Please take a shower or bath the night before, or the morning of, surgery with an antibacterial soap.? Wear comfortable, loose fitting clothing.? Children are encouraged to wear pajamas. - Jewelry must be removed prior to entering the operating room.? Rings and piercings that are not removed may be cut off. - The hospital will not accept responsibility for valuables.? - Please leave all valuables, including medications, at home the day of surgery. If you are going home after surgery, a licensed milk driver must drive you home.? - NO public transportation without another adult if you receive anesthesia. - We recommend that an adult stay with you for 24 hours following discharge. - We also recommend that you do not drive, make important decision, drink alcoholic beverages, or take any drugs that were not prescribed by your health care provider for at least 24 hours after your discharge time. For Pediatric surgeries, we recommend two adults accompany the child home. Follow any additional instructions given to you from your surgeon. Telephone instructions given to PATIENT- HARISH OTTO and asked if any additional questions and then verbalized understanding. Patient advised to call surgeon office or pre surgery nurse liaison [phone] if any additional questions.
[2025-06-29 17:07] VITALS: BMI 31.1
[2025-07-04] VITALS (11 sets, daily range): BP systolic 95–160; BP diastolic 52–97; PULSE 51–66; RESP 10–16; TEMP 36.2–36.7; O2SAT 93–100
--- NOTE | ~2025-07-04 | XR_ITS ---
XR shoulder LT 1V 07/04/2025 14:35 Indication: Left clavicular osteotomy Procedure: AP portable view left shoulder Comparison: 03/14/2025 Findings: Status post distal left clavicular osteotomy. Mild soft tissue swelling. Surrounding osseous structures and soft tissues are otherwise unremarkable. Impression: 1: Status post recent left clavicular osteotomy. Reviewed, dictated and finalized at location O. ERY DELIVERER Impression: 1: Status post recent left clavicular osteotomy.
--- NOTE | 2025-07-04 07:20 | WPDHPUPDATE1 ---
History and Physical Update Update Date/Time: 07/04/25 07:20 History and Physical has been reviewed, including an updated exam of the patient. There are NO changes in the patient's condition. Risks, benefits, and alternatives have been discussed and questions answered. Patient agrees to proceed with procedure.
[2025-07-04] MEDS: KETOROLAC 15 MG/ML VIAL (*BKC) IV PUSH (11:35)
[2025-07-04] MEDS: ACETAMINOPHEN 500 MG TABLET 1000 MG PO (11:35)
--- NOTE | 2025-07-04 12:01 | P.PNAN_ITS ---
Anes - Initial Pre Proc Eval Procedure: Operation Date: 07/04/25 13:00 Proposed Procedures p Left Shoulder Arthroscopic Rotator Cuff Repair with Subacromial Decompression, Distal Clavicle Excision - Gerald Beach MD Date/Time: 07/04/25 12:01 Surgeon: Gerald Beach MD Pre Op Diagnosis: left Rotator Cuff tear Patient Data Age: 60 Gender: F Height: 1.57 m Weight: 78.1 kg Last Vital Signs Temp 36.7 C 07/04/25 11:38 Pulse 62 07/04/25 11:38 Resp 16 07/04/25 11:38 BP 137/69 07/04/25 11:38 Pulse Ox 96 07/04/25 11:38 O2 Del Method Room Air 07/04/25 11:38 Allergies Allergy/AdvReac Type Severity Reaction Status Date / Time nickel AdvReac Mild Rash Verified 07/04/25 11:33 Sulfa (Sulfonamide AdvReac Mild Hives Verified 07/04/25 11:33 Antibiotics) Home Medications ?Medication ?Instructions ?Recorded ?Confirmed ?Type escitalopram oxalate 10 mg tablet 10 mg PO DAILY 90 da ys #90 tabs 03/23/25 07/04/25 Rx magnesium carb,citrate,oxide 400 mg PO DAILY 06/29/25 06/29/25 History (Magnesium Complex) naproxen sodium 220 mg capsule 220 mg PO BID PRN pain 06/29/25 06/29/25 History (Aleve) oxycodone-acetaminophen 5 mg-325 1 - 2 tablet PO Q4-6H PRN pain 7 07/04/25 Rx mg tablet days #30 tabs Patient hx anesthesia problems: none Family hx anesthesia problems: none Results Review: All pre-operative results and documents have been reviewed as part of the pre- operative evaluation. [facility] Past Medical History Medical History JOHN (generalized anxiety disorder) TMJ capsulitis Sprain of anterior cruciate ligament of left knee Sprain of anterior cruciate ligament of left knee, initial encounter PND (post-nasal drip) Lumbar back sprain Lateral subluxation of right patella, subsequent encounter Knee effusion, left IFG (impaired fasting glucose) Hypersomnia Hives Ganglion, right knee Elevated liver enzymes Diarrhea Contusion of left hand, subsequent encounter Cellulitis of nose Angioedema Acute pain of right shoulder Acute pain of left knee Acute maxillary sinusitis, unspecified COVID-19 07/27/2021 Migraines JOHN (generalized anxiety disorder) Surgical History Surgical History History of cholecystectomy History of tubal ligation History of meniscectomy of left knee Family History Family History Father Hypertension Family history of elevated blood lipids Cerebrovascular accident Family history of diabetes mellitus in first degree relative, Onset Age: 82 Patient's father is Sibling Cerebrovascular accident, Onset Age: 45 Mother Family history of malignant neoplasm of breast in first degree relative, Onset Age: 42 Patient's mother is Social History Social History Social History: Smoking status: Never smoker Second hand tobacco smoke exposure: No Alcohol intake: current Alcohol use details: Occasionally Substance use: never Substance use type: does not use Lack of Transportation: No Lack of Food: Never True Current Housing: I Have Housing Concerned About Future Housing: No Difficulty Paying Gas/Electric Bills: No Difficulty Paying for Meds: No Currently Unemployed: No Education: Trade/Vocational Certificate Difficulty w/ Childcare or Family Care: No Living arrangements: with family Occupation/Education: occupation 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 Gender identity (if verbalized by the patient): Female Sexual Orientation (if Verbalized by the Patient): Straight or Heterosexual Spiritual care concerns: No Anes - Eval Final PreProcedure Day of Procedure 07/04/25 12:01 Patient weight: obese Heart: regular rate and rhythm Lungs: clear to auscultation Airway: Mallampati scale class II Neurological: alert and oriented Last oral intake: >/= 8 hours ASA classification: II Emergent: no Anesthetic plan: proceed Anesthesia type and monitoring: general LMA and standard monitoring Results Review: All pre-operative results and documents have been reviewed as part of the pre- operative evaluation. Informed Consent: The patient's anesthetic plan and its attendant risks and benefits were discussed with the patient/family/POA. Questions were solicited and answers provided to the satisfaction of the patient/family/POA.
[2025-07-04] MEDS: ceFAZolin 2 GM in SODIUM CHLORIDE 0.9% IV 50 ML 100 ML IVPB (12:12)
[2025-07-04] MEDS: BUPIVACAINE/EPINEPHRINE 0.5% 50 ML VIAL 30 ML INFILTRATE (12:43)
--- NOTE | 2025-07-04 13:53 | P.OP_ITS ---
Procedure Note - Detailed Date of Procedure 07/04/25 Pre-op Diagnosis Left Shoulder Rotator Cuff tear, A/C joint arthritis, Impingement syndrome Post-op Diagnosis Other (Left Shoulder 1. Degenerative SLAP tear 2. Glenohumeral arthritis 3. Acromial clavicular arthritis 4. Subacromial impingement) Procedure Performed Left shoulder arthroscopic 1. Biceps tenodesis 2. Distal clavicle excision 3. Slap tear and anterior labral debridement 4. Subacromial decompression Surgeon Gerald Beach MD Disaster Response Director Ashley Delcid PA-C Anesthesia General Findings The MRI suggested significant rotator cuff tear, however only very minimal articular fraying was encountered. The bursal cuff appeared very healthy other than an area of hyperemia more posterior at the infraspinatus. Glenohumeral arthritis was moderate. Diffuse chondromalacia on the glenoid and mildly on the humerus. There was a significant unstable SLAP tear. The tear extended anteriorly into the labrum. This tissue was debrided. The biceps was tenodesed with an anchor at the articular margin. The anterior take your supraspinatus cuff was minimally frayed less than 10%. The bursa area showed a large anterolateral spur and prominent AC joint degenerative changes. Distal clavicle excision was performed as well as subacromial decompression at the acromion using the arthroscopic bur. Approximately 7-10 mm of distal clavicle was excised. The articular cuff tear area was marked with a PDS suture earlier, and this area was inspected carefully on the bursal side. There were no significant findings. There were no soft spots that would indicate a significant intra- articular tear. Description of Procedure Preoperative antibiotics were given. The patient was brought to the operating room. Careful positioning in the beach chair was accomplished. The head neck were carefully positioned. A small bump was placed under the shoulder. The shoulder was prepped and draped in the usual sterile fashion. Examination under anesthesia performed. There were no abnormal findings. Standard posterior and anterior arthroscopic portals were established. The glenohumeral joint did have moderate arthritis with significant chondromalacia the entire glenoid and on the humerus. Rotator cuff was healthy other than minimal fraying at the articular supraspinatus which was marked. There was a significant SLAP tear. The biceps was tenodesed using an Arthrex 4.75 mm SwiveLock bioabsorbable anchor. The SLAP tear and anterior labral extension was debrided with the arthroscopic shaver. There was a thickened middle glenohumeral ligament. There was no contracture or capsulitis. Attention was turned to the subacromial space. A complete bursectomy was performed. The rotator cuff was clear fully inspected. There was no evidence of significant tearing. There was an area of hyperemia at the infraspinatus tendon. The anterolateral acromion had a significant spur. Acromioplasty was performed with the arthroscopic bur. 7- 10 mm of distal clavicle was similarly excised through an accessory anterior portal. The 70 degree scope was utilized through several different viewing angles to assure complete excision while preserving the superior capsular ligaments. Loose bone fragments were carefully irrigated from the joint. The arthroscopic instruments were removed. The wounds were closed with interrupted 4-0 Monocryl suture followed by Steri-Strips. A sterile dressing was applied with a sling. The patient was extubated and brought to the recovery room in stable condition. There were no complications. Implants Arthrex SwiveLock 4.75 mm bio-absorbable anchor. Estimated Blood Loss 10 Drains No Packing No Pathology None sent Complications No immediate complications Condition Stable Disposition PACU [facility] Billing Surgery - Charge Forward: Surgery Billing
[2025-07-04] MEDS: LACTATED RINGERS 1,000 ML 30 ML IV CONT ×2 (13:56→14:42)
[2025-07-04] MEDS: ONDANSETRON INJ 4 MG/2 ML VIAL IV PUSH (15:20)
[2025-07-04] MEDS: fentaNYL CITRATE INJ (*CRX) 100 MCG/2 ML VIAL 25 MCG IV PUSH (15:51)
[2025-07-04] MEDS: oxyCODONE HCL (*CRX) 5 MG TAB IR PO (16:26)
[2025-07-04] MEDS: ONDANSETRON HCL ODT 4 MG TABLET PO (17:11)
[2025-07-04] MEDS: SCOPOLAMINE 1 MG PATCH 1 PATCH TRANSDERM (17:11)
== END 2025-07-04 17:30 | disposition home or self-care (01) ==
PROVIDERS: PCP Family Medicine; Visit Provider Orthopaedic Surgery
PROC: (CPT 29805; principal; 2025-07-04 13:00)
DX: M75.82 Other shoulder lesions, left shoulder (principal); M75.42 Impingement syndrome of left shoulder; M19.012 Primary osteoarthritis, left shoulder; M94.212 Chondromalacia, left shoulder; E66.9 Obesity, unspecified; Z68.31 Body mass index [BMI] 31.0-31.9, adult
CPT/HCPCS: 29823; 29828; 29824; 73020; J0690; A9270; C1713; J0166; J1885; J2250; J2270; J2405; J2704; J3010; J7120